=== PATIENT | male | born 1980 | race Caucasian/White ===

== ENCOUNTER 2016-03-01 00:38 | Emergency (ER) | payer OTHER ==
[2016-03-01 00:45] VITALS: BMI 40.9
[2016-03-01] MEDS ORDERED: LABETALOL 20 MG/4 ML SYRINGE IV ONE (01:14)
--- NOTE | 2016-03-01 01:30 | EDPRACDOC ---
- General Information Chief Complaint: Blood Pressure (Problems) Stated Complaint: HYPERTENSION Time Seen by Provider: 03/01/16 01:02 Information Source: Patient Home Medications: Home Medications Canagliflozin/Metformin HCl [Invokamet 50-1,000 mg Tablet] 1 each PO BID Eplerenone 50 mg PO BID 03/01/16 Fexofenadine HCl [Eboni] 180 mg PO DAILY 03/01/16 Fluoxetine HCl 20 mg PO DAILY 03/01/16 Furosemide 40 mg PO .ASDIRECTED PRN 03/01/16 Liraglutide [Victoza 0.6 mg/0.1 ml] 1.8 mg SQ DAILY 03/01/16 Metoprolol Tartrate [Lopressor] 50 mg PO BID #60 tablet 03/01/16 Olmesartan Medoxomil 40 mg PO DAILY 03/01/16 Oxybutynin Chloride [Oxybutynin Chloride ER] 5 mg PO DAILY 03/01/16 Pioglitazone HCl [Actos] 30 mg PO DAILY 03/01/16 Testosterone Cypionate 200 mg IM .BIMONTHLY 03/01/16 Allergies/Adverse Reactions: Allergies Allergy/AdvReac Type Severity Reaction Status Date / Time No Known Allergies Allergy Verified 03/01/16 00:45 - History of Present Illness Onset: 3 days HPI: C/o elevated BP at home up to 190-200's after recently switching HTN meds 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 Associated sx are mild tightness across chest and left arm, dizzyness, MALAGON. Denies vision chnages, sob, fever, N/V/D, chnages in urine or BM. Previously on lisinopril, now on benecar. Med hx = HTN, DM, sleep apnea, edema. Highest Known BP RECREATION COUNSELOR: Highest BP Known RECREATION COUNSELOR (200's/120's) Symptoms: Reports: Mild Circumstances: Reports: Spontaneous Onset Relevent History of: Reports: Hypertension Hypertension Treatment: Reports: Taking Medication, Other (recent chnage in HTN meds) Recent Use of: Reports: None Associated Signs and Symptoms: Reports: Headache, Chest Pain (chest tightness), Other (left arm tightness, dizzyness) ED Past Medical History - History Reviewed Yes Nurses notes reviewed and agree except as marked - Patient Medical History Cardiac History: Reports: Hypertension, Syncope Psychological History: Reports: Depression Systemic History: Reports: Diabetes Surgical History: Reports: Other (NASAL SX) - Family Medical History Reports: Hypertension, Diabetes - Social Medical History Smoking Status: Never smoker EDM Review of Systems - Review of Systems ROS Negative Except as Marked: Yes All systems reviewed and were negative except as marked Cardiovascular: Chest Pain (chest tightness) Neurological: Dizziness, Headache Endocrine: Diabetes - Physical Exam Constitutional: No apparent distress, Alert Oriented to: Time, Person, Place Last recorded Vital Signs: Last Vital Signs Temp 98.4 F 03/01/16 00:41 Pulse 81 03/01/16 01:18 Resp 20 03/01/16 00:41 BP 201/95 H 03/01/16 01:18 Pulse Ox 99 03/01/16 01:18 Oxygen Pulse Oxygen Saturation 99 O2 Device Room Air Oxygen Flow Rate Fraction of Inspired Oxygen ( FIO2) - HEENT Head: Normal Eye Exam: negative: Conjunctival Injection, Scleral Icterus Oropharynx: negative: Drooling TMJ: Normal Nose: No Symptoms Reported Neck: Normal - Respiratory/Cardiovascular Respiratory: Normal - CTA Cardiovascular: Normal - GI Auscultation: Normal Palpation: Normal Tenderness: Non tender - Musculoskeletal Back: Normal Extremities: Pedal Edema (1+), Pedal Pulse, Radial Pulse - Integumentary Skin: Normal - Neurologic Mood Description: Normal Thought: Coherent - Results 03/01/16 01:30 03/01/16 01:30 - EKG EKG #1 EKG Time: 00:47 -: Yes EKG interpreted by me Rate: bpm: 97 Rhythm: NSR Comparison: 07/20/12 (no sig chnage) Decision Time to Discharge: 04:07 - Departure Disposition: Home Condition: Stable Final Diagnosis: Elevated blood pressure reading Education/Counseling Given To: Patient Education/Counseling Given Regarding: Diagnosis, Treatment, Prognosis, Follow Up Referrals: Anuradha Astorga MD [Primary Care Provider] - One Week Prescriptions: Metoprolol Tartrate [Lopressor] 50 mg PO BID #60 tablet Additional Instructions: Follow up with primary care for elevated BP. Return to ED for any new or worsening symptoms.
[2016-03-01 01:44] LABS: AUTOMATED BASOPHIL 0.3 % (0-2); AUTOMATED EOSINOPHIL 0.7 % (0-5); AUTOMATED LYMPH 43.3 % (17-44); AUTOMATED MONOCYTE 5.1 % (3-10); AUTOMATED NEUTROPHIL 50.6 % (45-76); MPV 8.3 fL (7.4-10.4)
[2016-03-01 01:54] LABS: BLOOD UREA NITROGEN 12 MG/DL (9-20); CALCULATED OSMOLALITY 272 MOs/Kg (270-290); CHLORIDE 98 mEq/L (98-107); GLUCOSE 157 MG/DL (70-99); SODIUM LEVEL 140 mEq/L (137-146); TOTAL PROTEIN 7.9 G/DL (6.3-8.2)
[2016-03-01 01:55] LABS: PARTIAL THROMB. TIME 25.3 SEC (22-35); PT-INR 1.2
[2016-03-01 02:51] LABS: LEUKOCYTES/URINE NEG (NEGATIVE); NITRITE/URINE NEG (NEGATIVE); RBC/URINE 0-2 (0-2); URINE OCCULT BLOOD 1+ (NEG/TRACE); WBC/URINE 0-2 (0-2)
[2016-03-01 04:37] VITALS: BP 156/81; PULSE 84
[2016-03-01 04:38] VITALS: TEMP 98.6
== END 2016-03-01 04:35 | disposition home or self-care (01) ==
LOC: ED 00:38
DX: I10 Essential (primary) hypertension (principal)
CPT/HCPCS: 36415; 80053; 81001; 83880; 84484; 85025; 85610; 85730; 93005; 96374; 99284; J3490